=== PATIENT | female | born 1955 | race African-American/Black ===

== ENCOUNTER 2017-07-26 22:02 | Inpatient (IN) | payer MEDICAID ==
[~2017-07-26] VITALS: Ht 157.5 cm; Wt 72.6 kg
[~2017-07-26 22:02] MED LIST: UNKNOWN MEDS
[2017-07-26] MEDS ORDERED: ONDANSETRON HCL 4MG/2ML VIAL IV STA (23:53)
[2017-07-26] MEDS ORDERED: SODIUM CHLORIDE 0.9% 1,000 ML IV ONE (23:53)
[2017-07-26] MEDS ORDERED: MORPHINE SULFATE 4 MG/ML CPJ (NOT FOR IM USE) IV STA (23:53)
[2017-07-26] MEDS ORDERED: ENALAPRIL 2.5MG/2ML VIAL 2ML IV STA (23:53)
[2017-07-27 00:25] LABS: BASOPHILS % 1.4 % (0.0-2.0); EOSINOPHILS % 1.7 % (0.0-5.0); HEMATOCRIT. 42.3 % (36.0-48.0); LYMPHOCYTES % 33.3 % (20.0-50.0); MEAN CORPUSCULAR HEMOGLOBIN 30.8 pg (28.0-32.0); MEAN CORPUSCULAR VOLUME 93.3 fL (81.0-99.0); MEAN PLATELET VOLUME 8.2 fl (7.4-10.4); MONOCYTES % 8.9 % (2.0-8.0); NEUTROPHILS % 54.7 % (40.0-76.0); PLATELET 349 x1000/uL (130-400); RED BLOOD CELL COUNT 4.54 mill/uL (4.2-5.4); RED CELL DISTRIBUTION WIDTH 13.1 % (11.6-14.6)
[2017-07-27 00:42] LABS: CARBON DIOXIDE 23 mEq/L (21-32); CHLORIDE 105 mEq/L (98-107); TROPONIN I 0.08 ng/mL (0.00-0.04)
[2017-07-27] MEDS ORDERED: ONDANSETRON HCL 4MG/2ML VIAL IV ONE (01:15)
[2017-07-27] MEDS ORDERED: MORPHINE SULFATE 4 MG/ML CPJ (NOT FOR IM USE) IV ONE (01:15)
[2017-07-27] MEDS ORDERED: MORPHINE SULFATE 4 MG/ML CPJ (NOT FOR IM USE) IV STA (03:22)
[2017-07-27] MEDS ORDERED: ONDANSETRON HCL 4MG/2ML VIAL IV STA (03:22)
[2017-07-27] MEDS ORDERED: NITROGLYCERIN OINT 1GM/INCH UDPKT TD ONE (03:30)
[2017-07-27 05:10] VITALS: BP 101/72
[2017-07-27 08:00] VITALS: BP 143/93
[2017-07-27] MEDS ORDERED: ACETAMINOPHEN 325MG TABLET PO PRN (10:00)
[2017-07-27] MEDS ORDERED: CLONIDINE 0.1MG TABLET PO PRN (10:00)
[2017-07-27] MEDS ORDERED: IPRATROPIUM/ALBUTEROL 0.5-3(2.5)MG/3ML NEB INH PRN (10:00)
[2017-07-27] MEDS ORDERED: ONDANSETRON HCL 4MG/2ML VIAL IV PRN (10:00)
[2017-07-27] MEDS ORDERED: DIPHENHYDRAMINE 50MG/ML VIAL IV PRN (10:00)
[2017-07-27] MEDS: HYDROCODONE/ACETAMINOPHEN 5/325MG TABLET PO PRN ×3 (10:40→21:02)
[2017-07-27 12:00] VITALS: BP 109/52
[2017-07-27] MEDS ORDERED: SODIUM CHLORIDE 0.9% 10ML VIAL ONE (12:39)
[2017-07-27] MEDS ORDERED: IOHEXOL-350 100 ML BOTTLE ONE (12:39)
[2017-07-27] MEDS ORDERED: HYDR12.529 PO (13:30)
[2017-07-27] MEDS ORDERED: PROMETHAZINE LIQUID 6.25MG/5ML 118ML PO PRN (14:15)
[2017-07-27 16:00] VITALS: BP 132/111
[2017-07-27 20:00] VITALS: BP 126/73
[2017-07-27 20:20] LABS: CLARITY URINE CLOUDY (CLEAR); COLOR URINE YELLOW (YELLOW); GLUCOSE URINE NEGATIVE (NEGATIVE); KETONES URINE NEGATIVE (NEGATIVE); LEUKOCYTE ESTERASE URINE NEGATIVE (NEGATIVE); NITRITE URINE NEGATIVE (NEGATIVE); OCCULT BLOOD URINE NEGATIVE (NEGATIVE); PROTEIN URINE NEGATIVE (NEGATIVE); SPECIFIC GRAVITY URINE 1.023 (1.005-1.030); UROBILINOGEN URINE 0.2 E.U./dL (0.2-1.0)
[2017-07-27 20:48] LABS: *AMPHETAMINES SCREEN URINE NEGATIVE (NEGATIVE); *BARBITURATES SCREEN URINE NEGATIVE (NEGATIVE); *BENZODIAZEPINES SCREEN URINE NEGATIVE (NEGATIVE); *COCAINE SCREEN URINE PRESUMTIVE POSITIVE (NEGATIVE); CANNABINOID URINE SCREEN PRESUMTIVE POSITIVE (NEGATIVE); METHADONE URINE SCREEN NEGATIVE (NEGATIVE); OPIATES URINE SCREEN PRESUMTIVE POSITIVE (NEGATIVE); PHENCYCLIDINE URINE SCREEN PRESUMTIVE POSITIVE (NEGATIVE)
[2017-07-28] VITALS: BP 134/87
[2017-07-28 04:00] VITALS: BP 134/81
[2017-07-28 06:54] LABS: BASOPHILS % 0.9 % (0.0-2.0); HEMATOCRIT. 39.5 % (36.0-48.0); HEMOGLOBIN. 13.1 g/dL (12.0-16.0); LYMPHOCYTES % 39.8 % (20.0-50.0); MEAN CORPUSCULAR HEMOGLOBIN 31.4 pg (28.0-32.0); MEAN CORPUSCULAR VOLUME 94.5 fL (81.0-99.0); MEAN PLATELET VOLUME 8.9 fl (7.4-10.4); MONOCYTES % 9.6 % (2.0-8.0); NEUTROPHILS % 46.7 % (40.0-76.0); PLATELET 274 x1000/uL (130-400); RED BLOOD CELL COUNT 4.18 mill/uL (4.2-5.4)
[2017-07-28 07:34] LABS: CARBON DIOXIDE 25 mEq/L (21-32); CHLORIDE 103 mEq/L (98-107)
[2017-07-28 07:36] LABS: HDL CHOLESTEROL 57 mg/dL (40-59); LDL CHOLESTEROL 50 mg/dL (5-100)
[2017-07-28 08:00] VITALS: BP 142/74
[2017-07-28] MEDS ORDERED: HYDROCHLOROTHIAZIDE 12.5MG CAPSULE PO SCH (09:00)
[2017-07-28] MEDS: HYDROCODONE/ACETAMINOPHEN 5/325MG TABLET PO PRN (09:16)
[2017-07-28 12:00] VITALS: BP 126/97
[2017-07-28 14:21] VITALS: BP 126/97
== END 2017-07-28 14:55 | disposition home or self-care (01) | DRG 199 ==
LOC: ER 22:35 → 8WST 07-27 04:11 → EDBEDREQ 07-27 04:34 → ENRESERV 07-27 04:36
PROVIDERS: ADMIT Internal Medicine; ATTEND Internal Medicine
DX: I16.9 Hypertensive crisis, unspecified (principal); J44.9 Chronic obstructive pulmonary disease, unspecified; M94.0 Chondrocostal junction syndrome [Tietze]; I10 Essential (primary) hypertension; F17.210 Nicotine dependence, cigarettes, uncomplicated; F19.10 Other psychoactive substance abuse, uncomplicated; Z79.899 Other long term (current) drug therapy; Z88.6 Allergy status to analgesic agent; Z72.89 Other problems related to lifestyle
CPT/HCPCS: 36415; 71010; 71275; 80053; 80061; 80305; 81001; 82550; 82553; 83690; 84484; 85025; 85379; 87040; 87086; 93005; 93306; 96361; 96374; 96375; 96376; 99285; A4216; J2270; J2405; J3490; J7030; Q0169; Q9967

== ENCOUNTER 2019-08-16 10:47 | Inpatient (IN) | payer MEDICAID ==
[~2019-08-16] VITALS: Ht 157.5 cm; Wt 69.4 kg
[~2019-08-16 10:47] MED LIST changes: +HYDR12.529 PO; -UNKNOWN MEDS
[2019-08-16 12:38] LABS: EOSINOPHILS % 1.8 % (0.0-5.0); HEMATOCRIT. 39.6 % (36.0-48.0); HEMOGLOBIN. 13.4 g/dL (12.0-16.0); LYMPHOCYTES % 27.6 % (20.0-50.0); MEAN CORPUSCULAR HEMOGLOBIN 31.7 pg (28.0-32.0); MEAN CORPUSCULAR VOLUME 93.6 fL (81.0-99.0); MEAN PLATELET VOLUME 7.6 fl (7.4-10.4); MONOCYTES % 8.5 % (2.0-8.0); NEUTROPHILS % 61.1 % (40.0-76.0); PLATELET 314 x1000/uL (130-400); RED BLOOD CELL COUNT 4.23 mill/uL (4.2-5.4); RED CELL DISTRIBUTION WIDTH 13.3 % (11.6-14.6)
[2019-08-16 12:45] LABS: CHLORIDE 110 mEq/L (98-107)
[2019-08-16 12:46] LABS: INR 0.9; PROTHROMBIN TIME 9.8 sec (9.6-11.0)
[2019-08-16] MEDS ORDERED: HYDROCODONE/ACETAMINOPHEN 5/325MG TABLET PO ONE (13:00)
[2019-08-16] MEDS ORDERED: SODIUM CHLORIDE 0.9% 1,000 ML IV ONE (13:03)
[2019-08-16 14:28] LABS: CLARITY URINE CLEAR (CLEAR); COLOR URINE YELLOW (YELLOW); KETONES URINE NEGATIVE (NEGATIVE); LEUKOCYTE ESTERASE URINE NEGATIVE (NEGATIVE); NITRITE URINE NEGATIVE (NEGATIVE); OCCULT BLOOD URINE NEGATIVE (NEGATIVE); PH URINE 5.5 (4.5-8.0); PROTEIN URINE NEGATIVE (NEGATIVE); SPECIFIC GRAVITY URINE 1.019 (1.005-1.030); UROBILINOGEN URINE 0.2 E.U./dL (0.2-1.0)
[2019-08-16 14:58] LABS: *AMPHETAMINES SCREEN URINE NEGATIVE (NEGATIVE); *BARBITURATES SCREEN URINE NEGATIVE (NEGATIVE); *BENZODIAZEPINES SCREEN URINE NEGATIVE (NEGATIVE); *COCAINE SCREEN URINE PRESUMTIVE POSITIVE (NEGATIVE); METHADONE URINE SCREEN NEGATIVE (NEGATIVE); OPIATES URINE SCREEN NEGATIVE (NEGATIVE)
[2019-08-16 14:59] LABS: CANNABINOID URINE SCREEN PRESUMTIVE POSITIVE (NEGATIVE); PHENCYCLIDINE URINE SCREEN PRESUMTIVE POSITIVE (NEGATIVE)
[2019-08-16 16:00] VITALS: BP 159/72
[2019-08-16] MEDS ORDERED: AMLO5TAB88 MT (17:11)
[2019-08-16 17:14] VITALS: BP 146/76
[2019-08-16] MEDS ORDERED: CLONIDINE 0.1MG TABLET PO PRN (18:15)
[2019-08-16] MEDS ORDERED: ACETAMINOPHEN 325MG TABLET PO PRN (18:15)
[2019-08-16] MEDS ORDERED: IPRATROPIUM/ALBUTEROL 0.5-3(2.5)MG/3ML NEB NEB PRN (18:15)
[2019-08-16] MEDS ORDERED: ONDANSETRON HCL 4MG/2ML INJ IV PRN (18:15)
[2019-08-16] MEDS: SODIUM CHLORIDE 0.9% 1,000 ML IV SCH (18:28)
[2019-08-16] MEDS: AMLODIPINE 5MG TABLET PO SCH (18:35)
[2019-08-16] MEDS: HYDROCHLOROTHIAZIDE 12.5MG CAPSULE PO SCH (18:35)
[2019-08-16] MEDS: MORPHINE SULFATE 2 MG/ML CPJ (NOT FOR IM USE) IV PRN ×2 (19:18→23:33)
[2019-08-16 20:00] VITALS: BP 150/90
[2019-08-17] VITALS: BP 138/77
[2019-08-17 00:20] LABS: CREATINE KINASE MB FRACTION 1.4 ng/mL (0.5-3.6)
[2019-08-17] MEDS: MORPHINE SULFATE 2 MG/ML CPJ (NOT FOR IM USE) IV PRN ×4 (03:36→22:08)
[2019-08-17] MEDS: SODIUM CHLORIDE 0.9% 1,000 ML IV SCH ×3 (03:36→23:49)
[2019-08-17 04:00] VITALS: BP 135/77
[2019-08-17 07:26] LABS: BASOPHILS % 1.5 % (0.0-2.0); EOSINOPHILS % 2.5 % (0.0-5.0); HEMATOCRIT. 38.6 % (36.0-48.0); HEMOGLOBIN. 12.9 g/dL (12.0-16.0); LYMPHOCYTES % 38.5 % (20.0-50.0); MEAN CORPUSCULAR HEMOGLOBIN 31.4 pg (28.0-32.0); MEAN CORPUSCULAR VOLUME 94.2 fL (81.0-99.0); MEAN PLATELET VOLUME 8.3 fl (7.4-10.4); MONOCYTES % 6.9 % (2.0-8.0); NEUTROPHILS % 50.6 % (40.0-76.0); PLATELET 312 x1000/uL (130-400); RED CELL DISTRIBUTION WIDTH 13.3 % (11.6-14.6)
[2019-08-17 07:32] LABS: CHLORIDE 107 mEq/L (98-107)
[2019-08-17 07:42] LABS: CREATINE KINASE 106 IU/L (26-192)
[2019-08-17 07:43] LABS: CREATINE KINASE MB FRACTION 1.6 ng/mL (0.5-3.6)
[2019-08-17 08:00] VITALS: BP 132/61
[2019-08-17] MEDS: HYDROCHLOROTHIAZIDE 12.5MG CAPSULE PO SCH (09:16)
[2019-08-17] MEDS: AMLODIPINE 5MG TABLET PO SCH (09:17)
[2019-08-17] MEDS: ENOXAPARIN 40MG/0.4ML SYR SUBCUT SCH (09:18)
[2019-08-17 13:07] VITALS: BP 130/74
[2019-08-17 16:50] VITALS: BP 128/74
[2019-08-17 20:00] VITALS: BP 107/75
[2019-08-18] VITALS: BP 112/76
[2019-08-18 04:00] VITALS: BP 133/79
[2019-08-18] MEDS: MORPHINE SULFATE 2 MG/ML CPJ (NOT FOR IM USE) IV PRN ×2 (04:05→18:01)
[2019-08-18 08:00] VITALS: BP 135/89
[2019-08-18] MEDS: HYDROCHLOROTHIAZIDE 12.5MG CAPSULE PO SCH (09:00)
[2019-08-18] MEDS: AMLODIPINE 5MG TABLET PO SCH (09:00)
[2019-08-18] MEDS: ENOXAPARIN 40MG/0.4ML SYR SUBCUT SCH (09:00)
[2019-08-18] MEDS: SODIUM CHLORIDE 0.9% 1,000 ML IV SCH (10:03)
[2019-08-18 12:00] VITALS: BP 154/92
[2019-08-18 17:21] VITALS: BP 155/88
[2019-08-18 19:04] VITALS: BP 142/87
== END 2019-08-18 20:28 | disposition home health service (06) | DRG 198 ==
LOC: ER 10:58 → 7WST 13:57 → EDBEDREQ 14:04 → ENRESERV 14:44
PROVIDERS: ADMIT Internal Medicine; ATTEND Internal Medicine
DX: I24.9 Acute ischemic heart disease, unspecified (principal); F12.10 Cannabis abuse, uncomplicated; M94.0 Chondrocostal junction syndrome [Tietze]; F14.10 Cocaine abuse, uncomplicated; I10 Essential (primary) hypertension; J32.0 Chronic maxillary sinusitis; M47.812 Spondylosis without myelopathy or radiculopathy, cervical region; R29.6 Repeated falls; F17.210 Nicotine dependence, cigarettes, uncomplicated; Z88.8 Allergy status to other drugs, medicaments and biological substances
CPT/HCPCS: 36415; 70551; 71045; 72141; 72148; 80048; 80305; 80320; 81003; 82550; 82553; 84484; 93005; 93306; 93970; 97162; 99285; J1650; J2270; J7030; G0480

== ENCOUNTER 2021-08-16 02:20 | Emergency (ER) | payer MEDICAID ==
[~2021-08-16] VITALS: Ht 157.5 cm; Wt 69.1 kg
[~2021-08-16 02:20] MED LIST changes: +AMLO5TAB88 MT; +HYDR25TA MT
[2021-08-16] MEDS ORDERED: NITROGLYCERIN OINT 1GM/INCH UDPKT TD ONE (03:30)
[2021-08-16 04:00] LABS: BASOPHILS % 0.4 % (0.0-2.0); EOSINOPHILS % 1.8 % (0.0-5.0); HEMOGLOBIN. 13.5 g/dL (12.0-16.0); LYMPHOCYTES % 38.1 % (20.0-50.0); MEAN CORPUSCULAR HEMOGLOBIN 31.6 pg (28.0-32.0); MEAN CORPUSCULAR VOLUME 93.8 fL (81.0-99.0); MEAN PLATELET VOLUME 7.7 fl (7.4-10.4); NEUTROPHILS % 52.7 % (40.0-76.0); PLATELET 322 x1000/uL (130-400); RED BLOOD CELL COUNT 4.26 mill/uL (4.2-5.4); RED CELL DISTRIBUTION WIDTH 13.2 % (11.6-14.6)
[2021-08-16 04:07] LABS: CHLORIDE 108 mEq/L (98-107)
[2021-08-16] MEDS ORDERED: ENALAPRIL 2.5MG/2ML VIAL 2ML IV ONE (05:30)
[2021-08-16] MEDS ORDERED: ENALAPRIL 1.25MG/ML VIAL 1ML IV NR (05:30)
[2021-08-16] MEDS ORDERED: ACETAMINOPHEN WITH CODEINE 300/30MG TABLET PO ONE (09:00)
[2021-08-16 09:57] VITALS: BP 144/79
== END 2021-08-16 09:58 | disposition short-term general hospital (02) ==
LOC: ER 02:20 → CANBEDREQ 08:06 → ER 09:58
DX: R07.89 Other chest pain (principal); Z20.822 Contact with and (suspected) exposure to COVID-19; Z88.6 Allergy status to analgesic agent; Z98.890 Other specified postprocedural states
CPT/HCPCS: 36415; 71045; 80053; 83880; 84484; 85025; 85379; 87426; 93005; 96374; 99285; J3490

== ENCOUNTER 2021-11-03 23:16 | Emergency (ER) | payer MEDICAID ==
[~2021-11-03] VITALS: Ht 167.6 cm; Wt 91.0 kg
[2021-11-03 23:26] VITALS: BP 132/74
== END 2021-11-03 23:35 | disposition home or self-care (01) ==
LOC: ER 23:16
DX: Z20.822 Contact with and (suspected) exposure to COVID-19 (principal); R05.9 Cough, unspecified; I10 Essential (primary) hypertension; Z88.6 Allergy status to analgesic agent
CPT/HCPCS: 99283

== ENCOUNTER 2021-12-15 18:56 | Emergency (ER) | payer MEDICAID ==
[~2021-12-15] VITALS: Ht 160 cm; Wt 59.0 kg
[2021-12-15] MEDS ORDERED: SODIUM CHLORIDE 0.9% 1,000 ML IV ONE (19:15)
[2021-12-15 21:00] LABS: BASOPHILS % 1.1 % (0.0-2.0); HEMATOCRIT. 42.4 % (36.0-48.0); LYMPHOCYTES % 27.2 % (20.0-50.0); MEAN CORPUSCULAR HEMOGLOBIN 30.8 pg (28.0-32.0); MEAN CORPUSCULAR VOLUME 93.3 fL (81.0-99.0); MEAN PLATELET VOLUME 8.4 fl (7.4-10.4); MONOCYTES % 4.3 % (2.0-8.0); NEUTROPHILS % 66.4 % (40.0-76.0); PLATELET 309 x1000/uL (130-400); RED BLOOD CELL COUNT 4.55 mill/uL (4.2-5.4); RED CELL DISTRIBUTION WIDTH 13.7 % (11.6-14.6)
[2021-12-15 21:08] LABS: CHLORIDE 109 mEq/L (98-107)
[2021-12-15 21:13] LABS: ETHANOL BLOOD 42 mg/dL
[2021-12-15] MEDS ORDERED: ACETAMINOPHEN 325MG TABLET PO ONE (21:30)
[2021-12-15] MEDS ORDERED: CLONIDINE 0.1MG TABLET PO ONE (22:00)
[2021-12-15 23:02] VITALS: BP 199/114
== END 2021-12-15 23:16 | disposition home or self-care (01) ==
LOC: ER 18:56
DX: S02.2XXA Fracture of nasal bones, initial encounter for closed fracture (principal); S89.82XA Other specified injuries of left lower leg, initial encounter; I10 Essential (primary) hypertension; D64.9 Anemia, unspecified; R79.89 Other specified abnormal findings of blood chemistry; F10.229 Alcohol dependence with intoxication, unspecified; Y90.2 Blood alcohol level of 40-59 mg/100 ml; Z88.6 Allergy status to analgesic agent; Y08.89XA Assault by other specified means, initial encounter; Y93.89 Activity, other specified; Y92.524 Gas station as the place of occurrence of the external cause
CPT/HCPCS: 36415; 70450; 70486; 72125; 73562; 80053; 80307; 80320; 80329; 82962; 85025; 96360; 99285; J7030; G0480

== ENCOUNTER 2023-05-15 12:16 | Emergency (ER) | payer MEDICAID, OTHER ==
[~2023-05-15] VITALS: Ht 157.5 cm; Wt 68.2 kg
[2023-05-15 12:31] VITALS: O2SAT 99
[2023-05-15 13:06] LABS: BASOPHILS % 1.5 % (0.0-2.0); EOSINOPHILS % 1.9 % (0.0-5.0); HEMATOCRIT. 43.9 % (36.0-48.0); LYMPHOCYTES % 31.9 % (20.0-50.0); MEAN CORPUSCULAR HEMOGLOBIN 31.4 pg (28.0-32.0); MEAN CORPUSCULAR VOLUME 92.1 fL (81.0-99.0); MEAN PLATELET VOLUME 7.7 fl (7.4-10.4); MONOCYTES % 8.5 % (2.0-8.0); NEUTROPHILS % 56.2 % (40.0-76.0); PLATELET 364 x1000/uL (130-400); RED BLOOD CELL COUNT 4.77 mill/uL (4.2-5.4); RED CELL DISTRIBUTION WIDTH 13.5 % (11.6-14.6)
[2023-05-15 13:08] LABS: CHLORIDE 104 mEq/L (98-107)
[2023-05-15 15:27] VITALS: TEMP 98.6
[2023-05-15 17:45] VITALS: BP 140/94; PULSE 72; RESP 18
[2023-05-15] MEDS ORDERED: KETOROLAC 15MG/ML VIAL IM NR (17:45)
== END 2023-05-15 20:27 | disposition home or self-care (01) ==
LOC: ER 14:30
DX: R07.81 Pleurodynia (principal); R07.89 Other chest pain; I10 Essential (primary) hypertension; F17.210 Nicotine dependence, cigarettes, uncomplicated; F10.229 Alcohol dependence with intoxication, unspecified; Y90.0 Blood alcohol level of less than 20 mg/100 ml
CPT/HCPCS: 99285; 71045; 80053; 83690; 85025; 85379; 84484; 93005; 96372; 36415; J1885